=== PATIENT | female | born 1985 ===

== ENCOUNTER 2022-03-02 15:00 | Inpatient (IN) | payer OTHER ==
[~2022-03-02] VITALS: Ht 167.6 cm; Wt 68.9 kg
[2022-03-16] MEDS ORDERED: PRENATAL + DHA1 EAC1 PO (16:31)
== END 2022-03-19 12:40 | disposition home or self-care (01) | DRG 807 ==
LOC: OB/GYN 03-09 15:00 → LDR 03-16 15:53 → OB/GYN 03-17 10:10
PROVIDERS: ADMIT Obstetrics & Gynecology; ATTEND Obstetrics & Gynecology
PROC: 4A1HXCZ Monitoring of Products of Conception, Cardiac Rate, External Approach (ICD-10-PCS; 2022-03-16)
PROC: 10E0XZZ Delivery of Products of Conception, External Approach (ICD-10-PCS; principal; 2022-03-17)
DX: O48.0 Post-term pregnancy (principal); Z37.0 Single live birth; Z3A.41 41 weeks gestation of pregnancy; Z20.822 Contact with and (suspected) exposure to COVID-19

== ENCOUNTER 2022-03-12 15:29 | Outpatient (CLI) | payer OTHER | END 2022-03-12 17:00 | disposition home or self-care (01) | LOC: NST 15:29 | PROVIDERS: ATTEND Obstetrics & Gynecology Gynecology | DX: Z34.83 Encounter for supervision of other normal pregnancy, third trimester (principal) ==